=== PATIENT | male | born 1985 | race African-American/Black ===

== ENCOUNTER 2023-03-05 10:27 | Outpatient (CLI) | payer OTHER, SELFPAY ==
--- NOTE | ~2023-03-05 | MR_ITS ---
EXAMINATION: MR knee LT wo con DATE: 03/05/2023 11:19 INDICATION: Panic left knee pain TECHNIQUE: Magnetic resonance imaging (MRI) of the left knee was performed without intravenous contra st. Sequences included coronal PD-weighted FSE, coronal PD-weighted FS FSE, sagittal T2-weighted FSE , sagittal PD-weighted FS FSE and axial PD weighted fat saturated FSE. COMPARISON: None. FINDINGS: Medial compartment: Medial meniscus is normal. Articular cartilage is normal. Lateral compartment: Lateral meniscus appears normal. There however appears to be a band of meniscal tissue extending ante roposteriorly between the anterior and posterior roots of the lateral meniscus across the lateral int ercondylar eminence. This could represent a displaced bucket-handle tear however given the normal ciara earance of the lateral meniscus and the triangular configuration with smooth margins of the meniscal tissue along the intercondylar eminence on the coronal images suggests this is more likely to represe nt a normal variant lateral ring meniscus. Articular cartilage is normal. Patellofemoral compartment: Articular cartilage is normal. Ligaments and tendons: Anterior and posterior cruciate ligaments are normal. The medial collateral ligament and fibular indira ateral ligament complex are normal. The extensor mechanism is normal. The visualized medial and later al hamstring tendons as well as the iliotibial band are normal. Fluid: Physiologic amount of fluid in the joint space. No loose osteochondral bodies identified. Osseous/other: Normal marrow signal. No fracture or pathologic marrow replacing process. There is thickening and inc reased fluid signal within tissue located at the junction of the superficial and deep suprapatellar f at pads which could represent either portions of the fat pads and/or a thickened intervening suprapat ellar plical band. IMPRESSION: 1. Thickening and prominent increased fluid signal in the tissues between the cephalad aspect of the patella and the more posterior femur with differential including thickened suprapatellar plical band in the setting of plica syndrome, suprapatellar fat pad impingement syndrome or soft tissue contusion in the setting of recent trauma. 2. Likely normal variant lateral ring meniscus versus less likely displaced bucket-handle tear of the lateral meniscus. Reviewed, dictated and finalized at location A. IMPRESSION: 1. Thickening and prominent increased fluid signal in the tissues between the c ephalad aspect of the patella and the more posterior femur with differential in cluding thickened suprapatellar plical band in the setting of plica syndrome, s uprapatellar fat pad impingement syndrome or soft tissue contusion in the setti ng of recent trauma. 2. Likely normal variant lateral ring meniscus versus less likely displaced buc ket-handle tear of the lateral meniscus.
== END 2023-03-05 10:28 | disposition home or self-care (01) ==
LOC: ANHIMG 10:32
PROVIDERS: PCP Internal Medicine; Visit Provider Physician Assistant
DX: M25.562 Pain in left knee (principal); G89.29 Other chronic pain
CPT/HCPCS: 73721

== ENCOUNTER 2023-05-23 14:01 | Outpatient (CLI) | payer OTHER, SELFPAY ==
--- NOTE | ~2023-05-23 | MR_ITS ---
EXAMINATION: MR knee LT w con DATE: 05/23/2023 15:23 INDICATION: CHRONIC PAIN OF LT KNEE, swelling pain and instability, heard a pop and now has sharp halley n. TECHNIQUE: Magnetic resonance imaging (MRI) of the left knee was performed with 1 cc MultiHance intra -articular contrast. Sequences included axial PD-weighted FSE and PD-weighted FS FSE, coronal PD-weig hted FSE and PD-weighted FS FSE, sagittal T1 FS, PD-weighted FSE, and sagittal T2-weighted FS FSE. COMPARISON: 03/05/2023. FINDINGS: Medial compartment: Meniscus intact. Mild diffuse cartilage thinning, without focal defect. Lateral compartment: Meniscus intact. Normal variant lateral ring meniscus. Mild diffuse cartilage thinning, without focal defect. Patellofemoral compartment: Cartilage and retinacula intact. Ligaments and tendons: The ACL, PCL, MCL, and LCL are intact. Remaining flexor and extensor tendons are intact. Fluid: No abnormal fluid collection. Normal-appearing contrast-filled joint space, no filling defects or syn ovitis. Osseous/other: No suspicious focal or diffuse marrow signal. IMPRESSION: No internal derangement. Mild diffuse cartilage thinning in the medial and lateral compartments. Reviewed, dictated and finalized at location K. RAL AID COORDINATOR
--- NOTE | ~2023-05-23 | XR_ITS ---
EXAMINATION: XR fl inj knee LT for MR/CT DATE: 05/23/2023 15:01 INDICATION: Chronic left knee pain TECHNIQUE: A time-out was performed to verify the patient's name, date of , and procedure to b e performed. The procedure including the risks, benefits, and alternatives was discussed with the pat ient. Risks discussed included bleeding and infection. The patient understood the risks and agreed to proceed. The skin overlying the lateral aspect of the patellofemoral compartment of the left knee j oint was prepped and draped in usual sterile fashion. Anesthetic was administered with 1% lidocaine subcutaneously. A 22 G needle was advanced under fluoroscopic guidance into the joint. Injection of 1 mL of Omnipaque 240 confirmed intra-articular position of the needle. Subsequently, injectate con sisting of 32 mL of 2:1:1 mixture of sterile saline:Omnipaque 240:1% lidocaine mixed 200:1 with 529 m g/mL Multihance gadolinium contrast was injected with intra-articular administration confirmed with i ntermittent fluoroscopy. The needle was removed and the entry site was cleaned and dressed. There w ere no immediate complications. Fluoroscopy exposure time was 0.1 minutes. The total number of images was . FINDINGS: Real-time fluoroscopy demonstrates the needle and contrast in the left knee joint. IMPRESSION: 1. Successful left knee joint injection of dilute gadolinium contrast mixture for subsequent MRI arth rogram which will be dictated separately. Reviewed, dictated and finalized at location A. CIATE PROFESSOR OF ANTHROPOLOGY IMPRESSION: 1. Successful left knee joint injection of dilute gadolinium contrast mixture f or subsequent MRI arthrogram which will be dictated separately.
== END 2023-05-23 14:02 | disposition home or self-care (01) ==
LOC: ANHIMG 14:02
PROVIDERS: PCP Internal Medicine; Visit Provider Physician Assistant
DX: M25.562 Pain in left knee (principal); G89.29 Other chronic pain
CPT/HCPCS: 20610; 73722; 77002; A9577; Q9966